=== PATIENT | female | born 1960 | race Two or more races ===

== ENCOUNTER 2021-05-22 13:53 | Inpatient (IN) | payer MEDICAID, OTHER ==
[~2021-05-22] VITALS: Ht 152.4 cm; Wt 54.4 kg
[~2021-05-22 13:53] MED LIST: CALC-312 PO; GLIM4TAB42 PO; METF-372 PO; NIAC500T93 PO; SIMV-8 PO; SITA100T7 PO; VALS80TA4 PO
[2021-05-22] MEDS ORDERED: SODIUM CHLORIDE 0.9% 1,000 ML IV ONE (16:15)
[2021-05-22] MEDS ORDERED: SODIUM CHLORIDE 0.9% 500 ML IVB ONE (16:15)
[2021-05-22 17:23] LABS: Basophils # (auto) 0 10 ^3/uL (0-0.2); Basophils % (auto) 0.3 % (0.0-2.0); Eosinophils # (auto) 0 10 ^3/uL (0-0.8); Eosinophils % (auto) 0.1 % (0.0-7.0); Hematocrit 30.4 % (36.0-46.0); Hemoglobin 10.2 g/dL (12.2-16.2); Lymphocytes # (auto) 1.7 10 ^3/uL (0.4-5.4); Lymphocytes % (auto) 28.2 % (10.0-50.0); Mean Corpuscular Hemoglobin 31.7 pg (28.0-32.0); Mean Corpuscular Hgb Conc. 33.4 g/dL (32.0-36.0); Monocytes # (auto) 0.3 10 ^3/uL (0-1.3); Monocytes % (auto) 5.3 % (0.0-12.0); Neutrophils % (auto) 66.1 % (37.0-80.0); Nucleated Red Blood Cells % 0.3 %; Red Cell Distribution Width 15.6 % (11.8-14.3)
[2021-05-22] MEDS ORDERED: IOHEXOL 350 MG/ML 100ML IJ ONE (18:35)
[2021-05-22 20:32] LABS: Albumin 3.2 g/dL (3.4-5.0); Blood Urea Nitrogen 79 mg/dL (7-18); Calcium 8.1 mg/dL (8.5-10.1); Carbon Dioxide 21 mmol/L (21-32); Chloride 111 mmol/L (98-107); Glucose 101 mg/dL (74-106); Magnesium 2.8 mg/dL (1.6-2.6)
[2021-05-22 20:36] LABS: Alanine Aminotransferase 37 U/L (13-56); Alkaline Phosphatase 85 U/L (45-117); Aspartate Aminotransferase 45 U/L (15-37); BUN/Creatinine Ratio 38.9; Bilirubin, Total 0.2 mg/dL (0.2-1.0); GFR African American 32 mL/min; GFR Non-African American 27 mL/min
[2021-05-22 20:43] LABS: Anion Gap 6 (5-15); Potassium 5.2 mmol/L (3.5-5.1); Sodium 138 mmol/L (136-145)
[2021-05-23] MEDS ORDERED: DEXTROSE (50%) 50ML SYRG IV PRN (00:45)
[2021-05-23] MEDS ORDERED: ACETAMINOPHEN 325 MG TAB PO PRN (00:45)
[2021-05-23] MEDS ORDERED: HYDROcodone-ACET 5/325MG TAB PO PRN (00:45)
[2021-05-23] MEDS ORDERED: ALBUTEROL SULF HFA 90MCG INH 200DOSE IN PRN (00:45)
[2021-05-23] MEDS ORDERED: ONDANSETRON HCL 4 MG/2 ML VIAL IV PRN (00:45)
[2021-05-23] MEDS ORDERED: DOCUSATE SOD 100 MG CAP PO PRN (00:45)
[2021-05-23] MEDS ORDERED: MORPHINE SULFATE INJECTION 2 MG/ML SYRG IV PRN (01:00)
[2021-05-23] MEDS ORDERED: NITROGLYCERIN 0.4 MG SL TAB SL PRN (01:00)
[2021-05-23] MEDS ORDERED: SODIUM CHLOR 0.9% PF (SALINE LOCK) 10ML VIAL/SYR IV SCH (06:00)
[2021-05-23] MEDS: ACCU-CHEK COMFORT CURVE STRIP VI SCH ×2 (06:39→12:08)
[2021-05-23] MEDS: InsuLIN REG 1unit/0.01ml Soln (100units/ml) SC SCH ×2 (06:48→12:08)
[2021-05-23] MEDS ORDERED: MULTIPLE VITAMIN TAB PO SCH (10:00)
[2021-05-23] MEDS ORDERED: FAMOTIDINE (10MG/ML) 2ML VL IV SCH (10:00)
[2021-05-23] MEDS ORDERED: CHOLECALCIFEROL (VITD3) 2,000 UNIT CAP/TAB PO SCH (10:00)
[2021-05-23] MEDS ORDERED: AZITHROMYCIN 500MG/ 250ML 250 ML IV SCH (10:00)
[2021-05-23] MEDS ORDERED: DexAMETHasone SOD PHOS 10MG/1ML VIAL INJ IV SCH (10:00)
[2021-05-23] MEDS ORDERED: ZINC SULFATE 220mg CAP or TAB PO SCH (10:00)
[2021-05-23] MEDS ORDERED: ASCORBIC ACID 500 MG TAB PO SCH (10:00)
[2021-05-23] MEDS ORDERED: HEPARIN SODIUM (PORCINE) 5000 UNITS/ML 1ML VIAL SC SCH (10:00)
[2021-05-23] MEDS ORDERED: BUDESONIDE (INHALATION) 180 MCG IH IN SCH (10:00)
[2021-05-23] MEDS ORDERED: cefTRIAXone 1GM/50ML D5W 50 ML IV ONE (12:00)
[2021-05-23 12:40] VITALS: BP 102/56
[2021-05-24] MEDS ORDERED: cefTRIAXone 1GM/50ML D5W 50 ML IV SCH (09:00)
== END 2021-05-23 12:49 | disposition left against medical advice (07) | DRG 720 ==
LOC: ER 13:53 → EDBD 13:53 → EDSEX 13:53 → OVERFLOW 05-23 00:47
PROVIDERS: ADMIT Nurse Practitioner Family; ATTEND Family Medicine
DX: A41.89 Other specified sepsis (principal); J12.82 Pneumonia due to coronavirus disease 2019; R65.21 Severe sepsis with septic shock; U07.1 COVID-19; N17.9 Acute kidney failure, unspecified; E11.40 Type 2 diabetes mellitus with diabetic neuropathy, unspecified; E78.5 Hyperlipidemia, unspecified; E87.5 Hyperkalemia; E78.00 Pure hypercholesterolemia, unspecified; E11.21 Type 2 diabetes mellitus with diabetic nephropathy; I10 Essential (primary) hypertension; Z53.29 Procedure and treatment not carried out because of patient's decision for other reasons; Z87.442 Personal history of urinary calculi; Z79.84 Long term (current) use of oral hypoglycemic drugs
CPT/HCPCS: 36415; 70450; 71046; 71275; 80053; 82962; 83036; 83735; 84439; 84443; 85025; 85379; 87426; 93005; 94640; 96361; 96372; 96374; 96375; G0378; J1100; J3490